=== PATIENT | female | born 1980 | race Two or more races ===

== ENCOUNTER 2020-10-18 11:29 | Emergency (ER) | payer OTHER ==
[~2020-10-18] VITALS: Ht 154.9 cm; Wt 49.7 kg
[2020-10-18 12:13] VITALS: BP 119/85
[2020-10-18] MEDS ORDERED: ACETAMINOPHEN 500 MG TABLET PO ONE (13:00)
[2020-10-18] MEDS ORDERED: IBUPROFEN 600 MG TABLET PO ONE (13:00)
[2020-10-18] MEDS ORDERED: IBUPROFEN 600 MG TABLET ONE (13:10)
[2020-10-18] MEDS ORDERED: ACETAMINOPHEN 500 MG TABLET ONE (13:10)
--- NOTE | 2020-10-18 13:55 | NUR ---
PT REFUSED IBU. STATED SHE DOES NOT TAKE IT AT HOME AND WOULD PREFER TO STICK WITH TYLENOL.
== END 2020-10-18 13:56 | disposition home or self-care (01) ==
LOC: ED 13:45
DX: B01.9 Varicella without complication (principal); B34.9 Viral infection, unspecified; R50.9 Fever, unspecified
CPT/HCPCS: 99283